=== PATIENT | female | born 1940 | race Caucasian/White ===

== ENCOUNTER 2020-10-19 05:26 | Inpatient (IN) ==
[2020-10-19 06:10] LABS: Basophils % 0.1 % (0.0-0.8); Hematocrit 38.2 VOL% (35.7-47.0); Hemoglobin 13.2 GM/DL (12.0-16.0); Immature Granulocytes % 0.7 %; Immature Granulocytes Absolute 0.07 #; Lymphocytes # 0.8 10*3/uL (1.4-4.0); Mean Corpuscular HGB Conc 34.6 GM/DL (32-36); Mean Corpuscular Volume 88.8 FL (87-102); Mean Platelet Volume 9.7 FL (9.6-12.0); Monocytes % 3.2 % (1.7-12.7); Platelet Count 203 T/CUMM (130-400); Red Cell Distribution Width 12.6 % (9.3-17.3)
[2020-10-19 06:41] LABS: Hypochromasia 1+; Microcytosis 1+; Platelet Estimate Adequate
[2020-10-19 06:43] LABS: Albumin 2.8 G/DL (3.4-5.0); Bilirubin,Total 0.9 MG/DL (0.2-1.0); Calcium 8.4 MG/DL (8.5-10.1); Osmolality,Calculated 269.4 MOS/KG (273-304); Potassium 3.6 MMOL/L (3.5-5.1); Total Protein 7.2 G/DL (6.4-8.3)
[2020-10-19 06:48] LABS: Ferritin 427.7 ng/ml (8-252)
[2020-10-19] MEDS ORDERED: DEXAMETHASONE 4 MG/1 ML VIAL IV STA (06:57)
[2020-10-19] MEDS ORDERED: CHLOPHEDIANOL PO PRN (17:10)
[2020-10-19] MEDS ORDERED: PYRILAMINE PO PRN (17:10)
[2020-10-19] MEDS ORDERED: ACETAMINOPHEN 325 MG TABLET PO PRN (17:10)
[2020-10-19] MEDS ORDERED: GLUCAGON 1 MG VIAL IM PRN (17:10)
[2020-10-19] MEDS ORDERED: ONDANSETRON 4 MG/2 ML VIAL IV PRN (17:10)
[2020-10-19] MEDS ORDERED: LORATADINE 10 MG TABLET PO STA (17:10)
[2020-10-19] MEDS ORDERED: DEXTROSE 50% 25 GM/50 ML VIAL IV PRN (17:10)
[2020-10-19] MEDS ORDERED: AZITHROMYCIN 250 MG TABLET PO STA (17:10)
[2020-10-19] MEDS: FAMOTIDINE 20 MG TABLET PO SCH ×2 (18:00→23:05)
[2020-10-19] MEDS: SODIUM CHLORIDE 0.9% 1,000 ML IV SCH (18:00)
[2020-10-19] MEDS: DOCUSATE SODIUM 100 MG CAPSULE PO SCH ×2 (18:00→23:05)
[2020-10-19] MEDS ORDERED: ENOXAPARIN 40 MG/0.4 ML SYRINGE ONE (18:14)
[2020-10-19] MEDS: ENOXAPARIN 40 MG/0.4 ML SYRINGE SUBCUT SCH (18:25)
[2020-10-19] MEDS: BENZONATATE 100 MG CAPSULE PO SCH (23:05)
[2020-10-19] MEDS: guaiFENesin/CODEINE 5 ML LIQUID PO SCH (23:05)
[2020-10-20 04:19] LABS: Hematocrit 32.2 VOL% (35.7-47.0); Hemoglobin 11.4 GM/DL (12.0-16.0); Immature Granulocytes % 0.8 %; Immature Granulocytes Absolute 0.05 #; Lymphocytes # 0.8 10*3/uL (1.4-4.0); Lymphocytes % 11.6 % (21.3-54.2); Mean Corpuscular HGB Conc 35.4 GM/DL (32-36); Mean Corpuscular Volume 87.3 FL (87-102); Mean Platelet Volume 9.6 FL (9.6-12.0); Monocytes % 5.1 % (1.7-12.7); Neutrophils % 82.5 % (38.7-73.9); Platelet Count 180 T/CUMM (130-400); Red Blood Count 3.69 MC/CUMM (3.8-5.5); Red Cell Distribution Width 12.5 % (9.3-17.3); White Blood Count 6.5 T/CUMM (4-12)
[2020-10-20 04:41] LABS: Hypochromasia 1+; Lymphocytes 8 % (20-55); Microcytosis 1+; Platelet Estimate Adequate; Segmented Neutrophils 89 % (50-85); Total Cells Counted 100
[2020-10-20 04:44] LABS: Bacteria,Urine Occasional /HPF (Few); Bilirubin,Urine Negative (Negative); Blood, Urine Negative (Negative); Glucose,Urine (UA) Negative (Negative); Ketones,Urine Negative (Negative); Mucus,Urine Occasional /LPF (Occasional); Nitrite,Urine Negative (Negative); Protein,Urine Negative; RBC,Urine <1 /HPF (0-4); Squamous Epithelial Cell,Urine Occasional /HPF (0-10); Urine Appearance CLEAR (Clear); Urine Color Yellow (Yellow); Urine Specific Gravity 1.015 (1.001-1.035); Urine Urobilinogen < 2.0 EU/DL (0.2-1.0); WBC,Urine 1 /HPF (0-6)
[2020-10-20 04:46] LABS: Albumin 2.3 G/DL (3.4-5.0); Bilirubin,Total 0.5 MG/DL (0.2-1.0); Osmolality,Calculated 272.1 MOS/KG (273-304); Potassium 3.3 MMOL/L (3.5-5.1); Total Protein 6.9 G/DL (6.4-8.3)
[2020-10-20] MEDS: SODIUM CHLORIDE 0.9% 1,000 ML IV SCH (07:20)
[2020-10-20] MEDS: ZINC GLUCONATE 50 MG TABLET PO SCH (09:00)
[2020-10-20] MEDS: ASCORBIC ACID 500 MG TABLET PO SCH (09:00)
[2020-10-20] MEDS: DOCUSATE SODIUM 100 MG CAPSULE PO SCH ×2 (09:00→22:03)
[2020-10-20] MEDS ORDERED: DEXAMETHASONE INJ 6 MG in SODIUM CHLORIDE 0.9% 50 ML IV SCH (09:00)
[2020-10-20] MEDS: FAMOTIDINE 20 MG TABLET PO SCH ×2 (09:00→22:02)
[2020-10-20] MEDS: BENZONATATE 100 MG CAPSULE PO SCH ×3 (09:20→22:02)
[2020-10-20] MEDS: guaiFENesin/CODEINE 5 ML LIQUID PO SCH ×2 (09:30→22:01)
[2020-10-20] MEDS ORDERED: DEXAMETHASONE 4 MG/1 ML VIAL ONE (09:45)
[2020-10-20] MEDS ORDERED: CHOLECALCIFEROL 1,000 UNIT TABLET ONE (09:52)
[2020-10-20] MEDS ORDERED: REMDESIVIR 200 MG in SODIUM CHLORIDE 0.9% 210 ML IV ONE (10:00)
[2020-10-20] MEDS: DEXAMETHASONE 4 MG/1 ML VIAL IV SCH (10:30)
[2020-10-20] MEDS ORDERED: CHOLECALCIFEROL 1,000 UNIT TABLET PO ONE (10:30)
[2020-10-20] MEDS: ENOXAPARIN 40 MG/0.4 ML SYRINGE SUBCUT SCH ×2 (11:55→17:16)
[2020-10-20] MEDS: VANCOMYCIN INJ 1,250 MG in SODIUM CHLORIDE 0.9% 250 ML IV SCH (16:24)
[2020-10-21] MEDS: VANCOMYCIN INJ 1,250 MG in SODIUM CHLORIDE 0.9% 250 ML IV SCH ×2 (04:26→16:05)
[2020-10-21 05:09] LABS: Basophils % 0.1 % (0.0-0.8); Hemoglobin 11.9 GM/DL (12.0-16.0); Immature Granulocytes % 0.7 %; Immature Granulocytes Absolute 0.06 #; Lymphocytes # 0.9 10*3/uL (1.4-4.0); Lymphocytes % 11.5 % (21.3-54.2); Mean Corpuscular Volume 89.1 FL (87-102); Mean Platelet Volume 9.7 FL (9.6-12.0); Monocytes % 6.2 % (1.7-12.7); Neutrophils % 81.5 % (38.7-73.9); Platelet Count 223 T/CUMM (130-400); Red Blood Count 3.93 MC/CUMM (3.8-5.5); Red Cell Distribution Width 12.5 % (9.3-17.3); White Blood Count 8.1 T/CUMM (4-12)
[2020-10-21 05:38] LABS: Hypochromasia 1+; Microcytosis 1+; Platelet Estimate Adequate
[2020-10-21] MEDS: POTASSIUM CHLORIDE 20 MEQ TABLET PO SCH (09:15)
[2020-10-21] MEDS: BENZONATATE 100 MG CAPSULE PO SCH ×3 (09:15→21:23)
[2020-10-21] MEDS: CHOLECALCIFEROL 5,000 UNIT TABLET PO SCH (09:15)
[2020-10-21] MEDS: guaiFENesin/CODEINE 5 ML LIQUID PO SCH ×2 (09:15→21:23)
[2020-10-21] MEDS: REMDESIVIR 100 MG in SODIUM CHLORIDE 0.9% 100 ML IV SCH (09:15)
[2020-10-21] MEDS: ASCORBIC ACID 500 MG TABLET PO SCH (09:15)
[2020-10-21] MEDS: DEXAMETHASONE 4 MG/1 ML VIAL IV SCH (09:15)
[2020-10-21] MEDS: DOCUSATE SODIUM 100 MG CAPSULE PO SCH ×2 (09:15→21:00)
[2020-10-21] MEDS: FAMOTIDINE 20 MG TABLET PO SCH ×2 (09:15→21:22)
[2020-10-21] MEDS: SODIUM CHLORIDE 0.9% 1,000 ML IV SCH ×2 (10:59)
[2020-10-21] MEDS: LOSARTAN 50 MG TABLET PO SCH (11:50)
[2020-10-21] MEDS ORDERED: POTASSIUM CHLORIDE 20 MEQ TABLET PO SCH (13:57)
[2020-10-21] MEDS: ENOXAPARIN 40 MG/0.4 ML SYRINGE SUBCUT SCH (17:47)
[2020-10-22] MEDS: VANCOMYCIN INJ 1,250 MG in SODIUM CHLORIDE 0.9% 250 ML IV SCH (05:30)
[2020-10-22 06:13] LABS: Basophils % 0.2 % (0.0-0.8); Eosinophils % 0.1 % (0.00-10.9); Hematocrit 34.4 VOL% (35.7-47.0); Hemoglobin 11.7 GM/DL (12.0-16.0); Immature Granulocytes % 1.1 %; Immature Granulocytes Absolute 0.11 #; Lymphocytes # 0.6 10*3/uL (1.4-4.0); Lymphocytes % 6.5 % (21.3-54.2); Mean Corpuscular Volume 90.8 FL (87-102); Mean Platelet Volume 9.8 FL (9.6-12.0); Monocytes % 3.6 % (1.7-12.7); Neutrophils % 88.5 % (38.7-73.9); Platelet Count 199 T/CUMM (130-400); Red Blood Count 3.79 MC/CUMM (3.8-5.5); Red Cell Distribution Width 12.9 % (9.3-17.3); White Blood Count 9.6 T/CUMM (4-12)
[2020-10-22 06:29] LABS: Albumin 2.2 G/DL (3.4-5.0); Bilirubin,Total 1.4 MG/DL (0.2-1.0); Calcium 8.1 MG/DL (8.5-10.1); Osmolality,Calculated 282.4 MOS/KG (273-304); Potassium 3.6 MMOL/L (3.5-5.1); Total Protein 6.9 G/DL (6.4-8.3)
[2020-10-22] MEDS ORDERED: FUROSEMIDE 40 MG/4 ML VIAL IV ONE (07:52)
[2020-10-22] MEDS ORDERED: hydroCHLOROthiazide 25 MG TABLET PO SCH (09:00)
[2020-10-22] MEDS: CHOLECALCIFEROL 5,000 UNIT TABLET PO SCH (09:45)
[2020-10-22] MEDS: ZINC GLUCONATE 50 MG TABLET PO SCH (09:45)
[2020-10-22] MEDS: LOSARTAN 50 MG TABLET PO SCH (09:45)
[2020-10-22] MEDS: BENZONATATE 100 MG CAPSULE PO SCH ×2 (09:45→16:23)
[2020-10-22] MEDS: ASCORBIC ACID 500 MG TABLET PO SCH (09:45)
[2020-10-22] MEDS: FAMOTIDINE 20 MG TABLET PO SCH ×2 (09:45→21:18)
[2020-10-22] MEDS: POTASSIUM CHLORIDE 20 MEQ TABLET PO SCH (09:45)
[2020-10-22] MEDS: DEXAMETHASONE 4 MG/1 ML VIAL IV SCH (09:47)
[2020-10-22] MEDS: DOCUSATE SODIUM 100 MG CAPSULE PO SCH ×2 (10:53→21:18)
[2020-10-22] MEDS: BUDESONIDE/FORMOTEROL 160-4.5 INHALER 6 GM INH SCH ×2 (11:28→21:18)
[2020-10-22] MEDS: guaiFENesin/CODEINE 5 ML LIQUID PO SCH ×2 (11:28→21:18)
[2020-10-22] MEDS: REMDESIVIR 100 MG in SODIUM CHLORIDE 0.9% 100 ML IV SCH (11:29)
[2020-10-22] MEDS: SODIUM CHLORIDE 0.9% 1,000 ML IV SCH ×2 (16:06→16:51)
[2020-10-22] MEDS: LORATADINE 10 MG TABLET PO SCH (16:51)
[2020-10-22 17:47] LABS: Bacteria,Urine Occasional /HPF (Few); Bilirubin,Urine Negative (Negative); Blood, Urine Small mg/dL (Negative); Glucose,Urine (UA) Negative (Negative); Ketones,Urine Negative (Negative); Mucus,Urine Occasional /LPF (Occasional); Nitrite,Urine Negative (Negative); Protein,Urine 30 MG/DL; RBC,Urine 7 /HPF (0-4); Squamous Epithelial Cell,Urine Occasional /HPF (0-10); Urine Appearance CLEAR (Clear); Urine Color Yellow (Yellow); Urine Specific Gravity 1.014 (1.001-1.035); WBC,Urine 1 /HPF (0-6)
[2020-10-22] MEDS: ENOXAPARIN 40 MG/0.4 ML SYRINGE SUBCUT SCH (17:50)
[2020-10-22] MEDS: METOPROLOL TARTRATE 25 MG TABLET PO SCH (21:18)
[2020-10-23] MEDS: SODIUM CHLORIDE 0.9% 1,000 ML IV SCH ×2 (06:05→08:50)
[2020-10-23] MEDS ORDERED: FUROSEMIDE 40 MG/4 ML VIAL IV ONE ×2 (08:06→08:13)
[2020-10-23 09:22] LABS: ABG Base Excess 2.3 MMOL/L (-2.5-2.5); ABG PCO2 38.1 MM HG (35-48); ABG PH 7.446 (7.35-7.45); ABG PO2 43.2 MM HG (80-95); ABG TCO2 23.1 MMOL/L (23-27)
[2020-10-23] MEDS ORDERED: hydrALAZINE 20 MG/1 ML VIAL IV PRN (09:23)
[2020-10-23 10:24] LABS: Basophils % 0.1 % (0.0-0.8); Eosinophils % 0.1 % (0.00-10.9); Hematocrit 36.7 VOL% (35.7-47.0); Hemoglobin 12.2 GM/DL (12.0-16.0); Immature Granulocytes % 1.2 %; Immature Granulocytes Absolute 0.15 #; Lymphocytes # 0.4 10*3/uL (1.4-4.0); Lymphocytes % 3.5 % (21.3-54.2); Mean Corpuscular HGB Conc 33.2 GM/DL (32-36); Mean Corpuscular Volume 90.6 FL (87-102); Mean Platelet Volume 9.7 FL (9.6-12.0); Monocytes % 3.1 % (1.7-12.7); NRBC # 0.02 10*3/uL; Platelet Count 173 T/CUMM (130-400); Red Blood Count 4.05 MC/CUMM (3.8-5.5); Red Cell Distribution Width 13.1 % (9.3-17.3); White Blood Count 12.5 T/CUMM (4-12)
[2020-10-23 10:43] LABS: Albumin 2.2 G/DL (3.4-5.0); Calcium 8.1 MG/DL (8.5-10.1); Osmolality,Calculated 279.8 MOS/KG (273-304); Potassium 3.3 MMOL/L (3.5-5.1); Total Protein 7.3 G/DL (6.4-8.3)
[2020-10-23 12:29] LABS: Eosinophils 1 % (0-10); Hypochromasia 2+; Lymphocytes 3 % (20-55); Microcytosis 1+; Platelet Estimate Adequate; Polychromasia Slight; Segmented Neutrophils 91 % (50-85); Total Cells Counted 100
[2020-10-23] MEDS: POTASSIUM CHLORIDE 20 MEQ TABLET PO SCH (12:32)
[2020-10-23] MEDS: LORATADINE 10 MG TABLET PO SCH (12:32)
[2020-10-23] MEDS: DOCUSATE SODIUM 100 MG CAPSULE PO SCH ×2 (12:32→20:08)
[2020-10-23] MEDS: BUDESONIDE/FORMOTEROL 160-4.5 INHALER 6 GM INH SCH ×2 (12:33→21:08)
[2020-10-23] MEDS: FAMOTIDINE 20 MG TABLET PO SCH (12:33)
[2020-10-23] MEDS: guaiFENesin/CODEINE 5 ML LIQUID PO SCH ×2 (12:33→20:08)
[2020-10-23] MEDS: CHOLECALCIFEROL 5,000 UNIT TABLET PO SCH (12:33)
[2020-10-23] MEDS: ASCORBIC ACID 500 MG TABLET PO SCH (12:33)
[2020-10-23] MEDS: LOSARTAN 50 MG TABLET PO SCH (13:10)
[2020-10-23] MEDS: DEXAMETHASONE 4 MG/1 ML VIAL IV SCH ×2 (13:10→18:33)
[2020-10-23] MEDS: ENOXAPARIN 60 MG/0.6 ML SYRINGE SUBCUT SCH ×2 (13:10→20:43)
[2020-10-23] MEDS: METOPROLOL TARTRATE 25 MG TABLET PO SCH ×2 (13:10→20:09)
[2020-10-23] MEDS: REMDESIVIR 100 MG in SODIUM CHLORIDE 0.9% 100 ML IV SCH (14:07)
[2020-10-23] MEDS: INSULIN LISPRO 100 UNIT/ML SUBCUT SCH ×2 (17:52→20:08)
[2020-10-23] MEDS: FAMOTIDINE 20 MG/2 ML VIAL IV SCH (20:44)
[2020-10-23] MEDS ORDERED: VECURONIUM 10 MG VIAL IV ONE (20:55)
[2020-10-23] MEDS ORDERED: ETOMIDATE 20 MG/10 ML VIAL IV ONE (20:55)
[2020-10-23 21:06] LABS: ABG Base Excess 3.6 MMOL/L (-2.5-2.5); ABG HCO3 29.9 MMOL/L (20-26); ABG Oxygen Saturation 80.8 % (95-100); ABG PH 7.369 (7.35-7.45); ABG PO2 52.8 MM HG (80-95); ABG TCO2 31.5 MMOL/L (23-27)
[2020-10-24] MEDS: DEXAMETHASONE 4 MG/1 ML VIAL IV SCH ×4 (01:00→18:03)
[2020-10-24 04:30] LABS: Hematocrit 32.6 VOL% (35.7-47.0); Hemoglobin 10.8 GM/DL (12.0-16.0); Immature Granulocytes % 0.8 %; Immature Granulocytes Absolute 0.08 #; Lymphocytes # 0.4 10*3/uL (1.4-4.0); Lymphocytes % 3.9 % (21.3-54.2); Mean Corpuscular HGB Conc 33.1 GM/DL (32-36); Mean Corpuscular Volume 92.1 FL (87-102); Mean Platelet Volume 9.9 FL (9.6-12.0); Monocytes % 3.6 % (1.7-12.7); Neutrophils % 91.7 % (38.7-73.9); Platelet Count 131 T/CUMM (130-400); Red Blood Count 3.54 MC/CUMM (3.8-5.5); White Blood Count 9.6 T/CUMM (4-12)
[2020-10-24 04:49] LABS: Calcium 7.8 MG/DL (8.5-10.1); Osmolality,Calculated 296.1 MOS/KG (273-304); Potassium 3.6 MMOL/L (3.5-5.1)
[2020-10-24 05:06] LABS: Ferritin 377.9 ng/ml (8-252)
[2020-10-24] MEDS: SODIUM CHLORIDE 0.9% 1,000 ML IV SCH (05:28)
[2020-10-24 07:02] LABS: Hypochromasia 1+; Lymphocytes 3 % (20-55); Platelet Estimate Decreased; Segmented Neutrophils 94 % (50-85); Total Cells Counted 100
[2020-10-24] MEDS: METOPROLOL TARTRATE 25 MG TABLET PO SCH (08:38)
[2020-10-24] MEDS: ASCORBIC ACID 500 MG TABLET PO SCH (08:38)
[2020-10-24] MEDS: ZINC GLUCONATE 50 MG TABLET PO SCH (08:38)
[2020-10-24] MEDS: LOSARTAN 50 MG TABLET PO SCH (08:38)
[2020-10-24] MEDS: FAMOTIDINE 20 MG/2 ML VIAL IV SCH ×2 (08:39→21:35)
[2020-10-24] MEDS: POTASSIUM CHLORIDE 20 MEQ TABLET PO SCH (08:39)
[2020-10-24] MEDS: DOCUSATE SODIUM 100 MG CAPSULE PO SCH ×2 (08:39→23:11)
[2020-10-24] MEDS: LORATADINE 10 MG TABLET PO SCH (08:39)
[2020-10-24] MEDS: ENOXAPARIN 60 MG/0.6 ML SYRINGE SUBCUT SCH (08:40)
[2020-10-24] MEDS: CHOLECALCIFEROL 5,000 UNIT TABLET PO SCH (08:46)
[2020-10-24] MEDS: INSULIN LISPRO 100 UNIT/ML SUBCUT SCH ×4 (09:06→21:30)
[2020-10-24] MEDS: guaiFENesin/CODEINE 5 ML LIQUID PO SCH ×2 (09:28→21:30)
[2020-10-24] MEDS: REMDESIVIR 100 MG in SODIUM CHLORIDE 0.9% 100 ML IV SCH (10:47)
[2020-10-24] MEDS: BUDESONIDE/FORMOTEROL 160-4.5 INHALER 6 GM INH SCH ×2 (10:47→23:13)
[2020-10-24 11:50] LABS: ABG Base Excess 2.6 MMOL/L (-2.5-2.5); ABG HCO3 26.5 MMOL/L (20-26); ABG Oxygen Saturation 86.7 % (95-100); ABG PCO2 47.8 MM HG (35-48); ABG PH 7.381 (7.35-7.45); ABG PO2 56.9 MM HG (80-95); ABG TCO2 25.5 MMOL/L (23-27); Allen Test Positive; Pt O2 Delivery Device BIPAP
[2020-10-24] MEDS ORDERED: DEXMEDETOMIDINE 200 MCG in SODIUM CHLORIDE 0.9% 48 ML IV PRN (12:11)
[2020-10-24] MEDS: LACTATED RINGERS 1,000 ML IV SCH ×2 (12:36→23:14)
[2020-10-24] MEDS ORDERED: ETOMIDATE 20 MG/10 ML VIAL IV ONE ×2 (14:10→14:14)
[2020-10-24] MEDS ORDERED: SUCCINYLCHOLINE 200 MG/10 ML VIAL ONE (14:11)
[2020-10-24] MEDS ORDERED: SUCCINYLCHOLINE 200 MG/10 ML VIAL IV ONE (14:15)
[2020-10-24] MEDS ORDERED: MIDAZOLAM 2 MG/2 ML VIAL ONE (14:34)
[2020-10-24] MEDS ORDERED: MIDAZOLAM 2 MG/2 ML VIAL IV ONE (14:36)
[2020-10-24 14:53] LABS: ABG Base Excess -0.2 MMOL/L (-2.5-2.5); ABG HCO3 24.1 MMOL/L (20-26); ABG Oxygen Saturation 90.1 % (95-100); ABG PCO2 60.9 MM HG (35-48); ABG PH 7.271 (7.35-7.45); ABG PO2 71.9 MM HG (80-95); ABG TCO2 25.6 MMOL/L (23-27); Allen Test Positive; Pt O2 Delivery Device Ventilator
[2020-10-24] MEDS ORDERED: SODIUM CHLORIDE 0.9% 1,000 ML IV ONE (15:07)
[2020-10-24] MEDS: MIDAZOLAM 100 MG in SODIUM CHLORIDE 0.9% 80 ML IV PRN (15:17)
[2020-10-24 16:07] LABS: Allen Test Positive; Pt O2 Delivery Device Ventilator
[2020-10-24 16:08] LABS: ABG Base Excess -2.4 MMOL/L (-2.5-2.5); ABG HCO3 26.1 MMOL/L (20-26); ABG Oxygen Saturation 87.6 % (95-100); ABG PCO2 64.3 MM HG (35-48); ABG PH 7.226 (7.35-7.45); ABG PO2 67.3 MM HG (80-95); ABG TCO2 28.1 MMOL/L (23-27)
[2020-10-24 18:27] LABS: ABG Base Excess -0.8 MMOL/L (-2.5-2.5); ABG HCO3 23.6 MMOL/L (20-26); ABG Oxygen Saturation 91.6 % (95-100); ABG PCO2 59.6 MM HG (35-48); ABG PH 7.268 (7.35-7.45); ABG PO2 74.2 MM HG (80-95); Allen Test Positive; Pt O2 Delivery Device Ventilator
[2020-10-24] MEDS ORDERED: METOPROLOL TARTRATE 25 MG TABLET PO SCH (21:00)
[2020-10-24] MEDS: ENOXAPARIN 100 MG/ML SYRINGE SUBCUT SCH (21:30)
[2020-10-25] MEDS: DEXAMETHASONE 4 MG/1 ML VIAL IV SCH ×4 (01:00→18:11)
[2020-10-25] MEDS: LACTATED RINGERS 1,000 ML IV SCH ×4 (01:11→20:53)
[2020-10-25] MEDS: MIDAZOLAM 100 MG in SODIUM CHLORIDE 0.9% 80 ML IV PRN (02:00)
[2020-10-25] MEDS ORDERED: SODIUM CHLORIDE 0.9% 500 ML IV ONE (03:30)
[2020-10-25 05:13] LABS: Allen Test Positive; Pt O2 Delivery Device Ventilator
[2020-10-25 05:16] LABS: ABG Base Excess 0.8 MMOL/L (-2.5-2.5); ABG HCO3 27.4 MMOL/L (20-26); ABG Oxygen Saturation 95.3 % (95-100); ABG PH 7.331 (7.35-7.45); ABG PO2 87.6 MM HG (80-95)
[2020-10-25 05:36] LABS: Hematocrit 30.8 VOL% (35.7-47.0); Hemoglobin 10.2 GM/DL (12.0-16.0); Immature Granulocytes % 0.6 %; Immature Granulocytes Absolute 0.04 #; Lymphocytes # 0.3 10*3/uL (1.4-4.0); Lymphocytes % 3.9 % (21.3-54.2); Mean Corpuscular HGB Conc 33.1 GM/DL (32-36); Mean Corpuscular Volume 93.3 FL (87-102); Monocytes % 3.9 % (1.7-12.7); Neutrophils % 91.6 % (38.7-73.9); Platelet Count 138 T/CUMM (130-400); Red Cell Distribution Width 13.3 % (9.3-17.3); White Blood Count 6.4 T/CUMM (4-12)
[2020-10-25 05:57] LABS: Albumin 1.7 G/DL (3.4-5.0); Bilirubin,Total 0.8 MG/DL (0.2-1.0); Calcium 7.6 MG/DL (8.5-10.1); Osmolality,Calculated 309.7 MOS/KG (273-304); Potassium 3.9 MMOL/L (3.5-5.1); Total Protein 6.4 G/DL (6.4-8.3)
[2020-10-25 06:00] LABS: Lymphocytes 5 % (20-55); Segmented Neutrophils 92 % (50-85); Total Cells Counted 100
[2020-10-25 06:01] LABS: Hypochromasia 1+; Microcytosis 1+; Platelet Estimate Adequate
[2020-10-25] MEDS ORDERED: NOREPINEPHRINE 8 MG in SODIUM CHLORIDE 0.9% 242 ML IV PRN (06:46)
[2020-10-25] MEDS: LORATADINE 10 MG TABLET PO SCH (08:34)
[2020-10-25] MEDS: DOCUSATE SODIUM 100 MG CAPSULE PO SCH ×2 (08:34→20:51)
[2020-10-25] MEDS: ASCORBIC ACID 500 MG TABLET PO SCH (08:34)
[2020-10-25] MEDS: POTASSIUM CHLORIDE 20 MEQ TABLET PO SCH (08:34)
[2020-10-25] MEDS: CHOLECALCIFEROL 5,000 UNIT TABLET PO SCH (08:34)
[2020-10-25] MEDS: BUDESONIDE/FORMOTEROL 160-4.5 INHALER 6 GM INH SCH ×2 (08:35→20:51)
[2020-10-25] MEDS: guaiFENesin/CODEINE 5 ML LIQUID PO SCH ×2 (08:35→20:51)
[2020-10-25] MEDS: FAMOTIDINE 20 MG/2 ML VIAL IV SCH ×2 (08:35→20:50)
[2020-10-25] MEDS: ENOXAPARIN 100 MG/ML SYRINGE SUBCUT SCH ×2 (08:51→20:50)
[2020-10-25] MEDS: INSULIN LISPRO 100 UNIT/ML SUBCUT SCH ×3 (11:13→18:12)
[2020-10-25] MEDS: ALBUMIN 25% 25 GM in PREMIX 1 EACH IV SCH ×2 (13:24→18:12)
[2020-10-25] MEDS ORDERED: SODIUM CHLORIDE 0.9% 1,000 ML IV PRN (13:36)
[2020-10-26] MEDS: INSULIN LISPRO 100 UNIT/ML SUBCUT SCH ×4 (00:55→18:11)
[2020-10-26] MEDS: MORPHINE 4 MG/1 ML VIAL IV PRN ×2 (01:20→13:25)
[2020-10-26] MEDS: ALBUMIN 25% 25 GM in PREMIX 1 EACH IV SCH ×3 (02:30→18:12)
[2020-10-26 04:05] LABS: Hematocrit 28.1 VOL% (35.7-47.0); Hemoglobin 9.1 GM/DL (12.0-16.0); Immature Granulocytes Absolute 0.07 #; Lymphocytes # 0.3 10*3/uL (1.4-4.0); Lymphocytes % 4.2 % (21.3-54.2); Mean Corpuscular HGB Conc 32.4 GM/DL (32-36); Mean Corpuscular Volume 94.6 FL (87-102); Mean Platelet Volume 10.5 FL (9.6-12.0); Monocytes % 5.4 % (1.7-12.7); Neutrophils % 89.4 % (38.7-73.9); Platelet Count 120 T/CUMM (130-400); Red Blood Count 2.97 MC/CUMM (3.8-5.5); Red Cell Distribution Width 13.4 % (9.3-17.3); White Blood Count 7.1 T/CUMM (4-12)
[2020-10-26 04:18] LABS: Allen Test Positive; Pt O2 Delivery Device Ventilator
[2020-10-26 04:21] LABS: ABG Base Excess 0.7 MMOL/L (-2.5-2.5); ABG Oxygen Saturation 98.2 % (95-100); ABG PCO2 57.1 MM HG (35-48); ABG PH 7.309 (7.35-7.45); ABG PO2 134.8 MM HG (80-95); ABG TCO2 29.8 MMOL/L (23-27)
[2020-10-26 04:25] LABS: Band Neutrophils 1 % (0-10); Hypochromasia 1+; Lymphocytes 2 % (20-55); Microcytosis 1+; Segmented Neutrophils 93 % (50-85); Total Cells Counted 100
[2020-10-26 04:40] LABS: Bilirubin,Total 0.7 MG/DL (0.2-1.0); Calcium 8.1 MG/DL (8.5-10.1); Osmolality,Calculated 312.6 MOS/KG (273-304); Potassium 4.3 MMOL/L (3.5-5.1); Total Protein 6.8 G/DL (6.4-8.3)
[2020-10-26] MEDS: LACTATED RINGERS 1,000 ML IV SCH ×3 (06:36→23:21)
[2020-10-26] MEDS: LORATADINE 10 MG TABLET PO SCH (08:16)
[2020-10-26] MEDS: CHOLECALCIFEROL 5,000 UNIT TABLET PO SCH (08:16)
[2020-10-26] MEDS: DOCUSATE SODIUM 100 MG CAPSULE PO SCH ×2 (08:16→21:00)
[2020-10-26] MEDS: POTASSIUM CHLORIDE 20 MEQ TABLET PO SCH (08:16)
[2020-10-26] MEDS: ASCORBIC ACID 500 MG TABLET PO SCH (08:16)
[2020-10-26] MEDS: FAMOTIDINE 20 MG/2 ML VIAL IV SCH ×2 (08:17→21:00)
[2020-10-26] MEDS: ENOXAPARIN 100 MG/ML SYRINGE SUBCUT SCH ×2 (08:17→21:00)
[2020-10-26] MEDS: guaiFENesin/CODEINE 5 ML LIQUID PO SCH ×2 (08:17→21:00)
[2020-10-26] MEDS: DEXAMETHASONE 4 MG/1 ML VIAL IV SCH (08:17)
[2020-10-26] MEDS: BUDESONIDE/FORMOTEROL 160-4.5 INHALER 6 GM INH SCH ×2 (08:21→21:00)
[2020-10-27] MEDS: INSULIN LISPRO 100 UNIT/ML SUBCUT SCH ×4 (00:32→17:53)
[2020-10-27] MEDS: ALBUMIN 25% 25 GM in PREMIX 1 EACH IV SCH (01:30)
[2020-10-27 03:36] LABS: ABG Base Excess 2.6 MMOL/L (-2.5-2.5); ABG HCO3 26.6 MMOL/L (20-26); ABG Oxygen Saturation 92.4 % (95-100); ABG PCO2 53.5 MM HG (35-48); ABG PH 7.342 (7.35-7.45); ABG PO2 68.9 MM HG (80-95); ABG TCO2 27.1 MMOL/L (23-27); Allen Test Positive; Pt O2 Delivery Device Ventilator
[2020-10-27 05:09] LABS: Hematocrit 26.9 VOL% (35.7-47.0); Hemoglobin 8.7 GM/DL (12.0-16.0); Immature Granulocytes % 1.1 %; Immature Granulocytes Absolute 0.09 #; Lymphocytes # 0.3 10*3/uL (1.4-4.0); Lymphocytes % 3.4 % (21.3-54.2); Mean Corpuscular HGB Conc 32.3 GM/DL (32-36); Mean Corpuscular Volume 95.7 FL (87-102); Mean Platelet Volume 10.8 FL (9.6-12.0); Monocytes % 6.2 % (1.7-12.7); NRBC # 0.02 10*3/uL; Neutrophils % 89.3 % (38.7-73.9); Platelet Count 103 T/CUMM (130-400); Red Blood Count 2.81 MC/CUMM (3.8-5.5); Red Cell Distribution Width 13.5 % (9.3-17.3); White Blood Count 8.1 T/CUMM (4-12)
[2020-10-27 05:31] LABS: Hypochromasia 1+; Lymphocytes 4 % (20-55); Microcytosis 1+; Nucleated Red Blood Cells 1 (0-5); Platelet Estimate Decreased; Segmented Neutrophils 93 % (50-85); Total Cells Counted 100
[2020-10-27 05:37] LABS: Albumin 3.3 G/DL (3.4-5.0); Bilirubin,Total 0.6 MG/DL (0.2-1.0); Calcium 8.5 MG/DL (8.5-10.1); Osmolality,Calculated 310.6 MOS/KG (273-304); Potassium 4.5 MMOL/L (3.5-5.1); Total Protein 6.4 G/DL (6.4-8.3)
[2020-10-27] MEDS: FAMOTIDINE 20 MG/2 ML VIAL IV SCH ×2 (08:04→21:33)
[2020-10-27] MEDS: ENOXAPARIN 100 MG/ML SYRINGE SUBCUT SCH (08:04)
[2020-10-27] MEDS: LORATADINE 10 MG TABLET PO SCH (08:05)
[2020-10-27] MEDS: DOCUSATE SODIUM 100 MG CAPSULE PO SCH (08:05)
[2020-10-27] MEDS: POTASSIUM CHLORIDE 20 MEQ TABLET PO SCH (08:05)
[2020-10-27] MEDS: CHOLECALCIFEROL 5,000 UNIT TABLET PO SCH (08:05)
[2020-10-27] MEDS: ASCORBIC ACID 500 MG TABLET PO SCH (08:05)
[2020-10-27] MEDS: DEXAMETHASONE 4 MG/1 ML VIAL IV SCH (08:06)
[2020-10-27] MEDS: LACTATED RINGERS 1,000 ML IV SCH ×2 (08:37→13:52)
[2020-10-27] MEDS: BUDESONIDE/FORMOTEROL 160-4.5 INHALER 6 GM INH SCH ×2 (08:38→21:34)
[2020-10-27] MEDS: ROCURONIUM 500 MG in SODIUM CHLORIDE 0.9% 500 ML IV PRN ×2 (12:40→23:59)
[2020-10-27] MEDS: DOCUSATE SODIUM 100 MG/10 ML UDCUP PO SCH (21:33)
[2020-10-27] MEDS: ENOXAPARIN 60 MG/0.6 ML SYRINGE SUBCUT SCH (21:33)
[2020-10-27] MEDS: MIDAZOLAM 100 MG in SODIUM CHLORIDE 0.9% 80 ML IV PRN (23:00)
[2020-10-28] MEDS: INSULIN LISPRO 100 UNIT/ML SUBCUT SCH ×4 (00:52→18:01)
[2020-10-28 04:27] LABS: ABG Base Excess 1.3 MMOL/L (-2.5-2.5); ABG HCO3 28.1 MMOL/L (20-26); ABG Oxygen Saturation 98.2 % (95-100); ABG PCO2 57.1 MM HG (35-48); ABG PO2 140.6 MM HG (80-95); ABG TCO2 29.9 MMOL/L (23-27); Allen Test Positive; Pt O2 Delivery Device Ventilator
[2020-10-28 04:27] LABS: Eosinophils % 0.4 % (0.00-10.9); Hematocrit 27.3 VOL% (35.7-47.0); Hemoglobin 8.5 GM/DL (12.0-16.0); Immature Granulocytes Absolute 0.15 #; Lymphocytes # 0.4 10*3/uL (1.4-4.0); Lymphocytes % 4.7 % (21.3-54.2); Mean Corpuscular HGB Conc 31.1 GM/DL (32-36); Mean Corpuscular Volume 97.2 FL (87-102); Mean Platelet Volume 10.8 FL (9.6-12.0); Monocytes % 7.1 % (1.7-12.7); NRBC # 0.03 10*3/uL; Neutrophils % 85.8 % (38.7-73.9); Platelet Count 102 T/CUMM (130-400); Red Blood Count 2.81 MC/CUMM (3.8-5.5); Red Cell Distribution Width 13.6 % (9.3-17.3); White Blood Count 7.5 T/CUMM (4-12)
[2020-10-28 04:48] LABS: Hypochromasia 2+; Lymphocytes 8 % (20-55); Microcytosis 1+; Platelet Estimate Decreased; Segmented Neutrophils 88 % (50-85); Total Cells Counted 100
[2020-10-28 04:51] LABS: Calcium 8.4 MG/DL (8.5-10.1); Osmolality,Calculated 313.4 MOS/KG (273-304); Potassium 4.8 MMOL/L (3.5-5.1)
[2020-10-28] MEDS: ASCORBIC ACID 500 MG TABLET PO SCH (08:25)
[2020-10-28] MEDS: DOCUSATE SODIUM 100 MG/10 ML UDCUP PO SCH ×2 (08:28→20:36)
[2020-10-28] MEDS: LORATADINE 10 MG TABLET PO SCH (08:28)
[2020-10-28] MEDS: DEXAMETHASONE 4 MG/1 ML VIAL IV SCH (08:28)
[2020-10-28] MEDS: FAMOTIDINE 20 MG/2 ML VIAL IV SCH ×2 (08:29→20:36)
[2020-10-28] MEDS: ENOXAPARIN 60 MG/0.6 ML SYRINGE SUBCUT SCH ×2 (08:29→20:36)
[2020-10-28] MEDS: POTASSIUM CHLORIDE 20 MEQ TABLET PO SCH (08:29)
[2020-10-28] MEDS: CHOLECALCIFEROL 5,000 UNIT TABLET PO SCH (08:30)
[2020-10-28] MEDS: BUDESONIDE/FORMOTEROL 160-4.5 INHALER 6 GM INH SCH ×2 (08:30→20:36)
[2020-10-28] MEDS: cefTRIAXone 1,000 MG in SYRINGE 1 EACH IV SCH (11:23)
[2020-10-28] MEDS: ROCURONIUM 500 MG in SODIUM CHLORIDE 0.9% 500 ML IV PRN (12:06)
[2020-10-28] MEDS: MIDAZOLAM 100 MG in SODIUM CHLORIDE 0.9% 80 ML IV PRN (19:30)
[2020-10-29] MEDS: ROCURONIUM 500 MG in SODIUM CHLORIDE 0.9% 500 ML IV PRN ×2 (00:30→18:27)
[2020-10-29] MEDS: INSULIN LISPRO 100 UNIT/ML SUBCUT SCH ×4 (00:43→17:54)
[2020-10-29 04:50] LABS: Basophils % 0.2 % (0.0-0.8); Eosinophils # 0.1 10*3/uL (0.0-0.87); Eosinophils % 1.1 % (0.00-10.9); Immature Granulocytes % 2.8 %; Immature Granulocytes Absolute 0.18 #; Lymphocytes # 0.3 10*3/uL (1.4-4.0); Lymphocytes % 5.3 % (21.3-54.2); Mean Corpuscular HGB Conc 32.1 GM/DL (32-36); Mean Corpuscular Volume 95.6 FL (87-102); Mean Platelet Volume 11.5 FL (9.6-12.0); Monocytes % 7.6 % (1.7-12.7); Platelet Count 101 T/CUMM (130-400); Red Blood Count 2.93 MC/CUMM (3.8-5.5); Red Cell Distribution Width 13.5 % (9.3-17.3); White Blood Count 6.5 T/CUMM (4-12)
[2020-10-29 04:56] LABS: ABG HCO3 26.2 MMOL/L (20-26); ABG Oxygen Saturation 97.1 % (95-100); ABG PCO2 57.4 MM HG (35-48); ABG PH 7.315 (7.35-7.45); ABG PO2 96.7 MM HG (80-95); Allen Test Positive; Pt O2 Delivery Device Ventilator
[2020-10-29 05:13] LABS: Calcium 8.4 MG/DL (8.5-10.1); Osmolality,Calculated 307.6 MOS/KG (273-304); Potassium 4.8 MMOL/L (3.5-5.1)
[2020-10-29] MEDS: cefTRIAXone 1,000 MG in SYRINGE 1 EACH IV SCH (09:52)
[2020-10-29] MEDS: DOCUSATE SODIUM 100 MG/10 ML UDCUP PO SCH ×2 (09:52→20:59)
[2020-10-29] MEDS: POTASSIUM CHLORIDE 20 MEQ TABLET PO SCH (09:52)
[2020-10-29] MEDS: ASCORBIC ACID 500 MG TABLET PO SCH (09:52)
[2020-10-29] MEDS: CHOLECALCIFEROL 5,000 UNIT TABLET PO SCH (09:52)
[2020-10-29] MEDS: LORATADINE 10 MG TABLET PO SCH (09:52)
[2020-10-29] MEDS: FAMOTIDINE 20 MG/2 ML VIAL IV SCH ×2 (09:53→20:59)
[2020-10-29] MEDS: DEXAMETHASONE 4 MG/1 ML VIAL IV SCH (09:53)
[2020-10-29] MEDS: ENOXAPARIN 60 MG/0.6 ML SYRINGE SUBCUT SCH ×2 (09:54→20:59)
[2020-10-29] MEDS: BUDESONIDE/FORMOTEROL 160-4.5 INHALER 6 GM INH SCH ×2 (13:26→21:00)
[2020-10-29] MEDS: MIDAZOLAM 100 MG in SODIUM CHLORIDE 0.9% 80 ML IV PRN (17:33)
[2020-10-29] MEDS: ALBUTEROL INHALER 18 GM INH SCH (19:24)
[2020-10-30] MEDS: INSULIN LISPRO 100 UNIT/ML SUBCUT SCH ×4 (00:48→18:37)
[2020-10-30] MEDS: ALBUTEROL INHALER 18 GM INH SCH ×4 (00:49→19:42)
[2020-10-30 02:55] LABS: ABG HCO3 29.1 MMOL/L (20-26); ABG Oxygen Saturation 96.6 % (95-100); ABG PCO2 60.6 MM HG (35-48); ABG PO2 96.7 MM HG (80-95)
[2020-10-30 04:55] LABS: Basophils % 0.1 % (0.0-0.8); Eosinophils # 0.2 10*3/uL (0.0-0.87); Eosinophils % 2.2 % (0.00-10.9); Hematocrit 28.4 VOL% (35.7-47.0); Hemoglobin 8.8 GM/DL (12.0-16.0); Immature Granulocytes % 2.2 %; Immature Granulocytes Absolute 0.17 #; Lymphocytes # 0.4 10*3/uL (1.4-4.0); Lymphocytes % 5.1 % (21.3-54.2); Mean Corpuscular Volume 97.3 FL (87-102); Mean Platelet Volume 11.5 FL (9.6-12.0); Monocytes % 7.3 % (1.7-12.7); Neutrophils % 83.1 % (38.7-73.9); Red Blood Count 2.92 MC/CUMM (3.8-5.5); Red Cell Distribution Width 13.4 % (9.3-17.3); White Blood Count 7.8 T/CUMM (4-12)
[2020-10-30 04:58] LABS: Platelet Count 95 T/CUMM (130-400)
[2020-10-30 05:06] LABS: Calcium 8.5 MG/DL (8.5-10.1); Osmolality,Calculated 312.3 MOS/KG (273-304); Potassium 5.2 MMOL/L (3.5-5.1)
[2020-10-30 05:31] LABS: Hypochromasia 1+; Microcytosis 1+; Platelet Estimate Decreased
[2020-10-30] MEDS: ENOXAPARIN 60 MG/0.6 ML SYRINGE SUBCUT SCH (08:00)
[2020-10-30] MEDS: FAMOTIDINE 20 MG/2 ML VIAL IV SCH ×2 (08:00→20:54)
[2020-10-30] MEDS: DOCUSATE SODIUM 100 MG/10 ML UDCUP PO SCH ×2 (08:00→20:54)
[2020-10-30] MEDS: CHOLECALCIFEROL 5,000 UNIT TABLET PO SCH (08:00)
[2020-10-30] MEDS: LORATADINE 10 MG TABLET PO SCH (08:00)
[2020-10-30] MEDS: ASCORBIC ACID 500 MG TABLET PO SCH (08:00)
[2020-10-30] MEDS: POTASSIUM CHLORIDE 20 MEQ TABLET PO SCH (08:00)
[2020-10-30] MEDS: DEXAMETHASONE 4 MG/1 ML VIAL IV SCH (08:00)
[2020-10-30] MEDS: BUDESONIDE/FORMOTEROL 160-4.5 INHALER 6 GM INH SCH ×2 (08:00→20:54)
[2020-10-30] MEDS: cefTRIAXone 1,000 MG in SYRINGE 1 EACH IV SCH (09:30)
[2020-10-30] MEDS: FONDAPARINUX 2.5 MG/0.5 ML SYRINGE SUBCUT SCH (13:10)
[2020-10-30] MEDS: SODIUM CHLORIDE 0.45% 1,000 ML IV SCH (13:12)
[2020-10-30] MEDS: MIDAZOLAM 100 MG in SODIUM CHLORIDE 0.9% 80 ML IV PRN (15:05)
[2020-10-31] MEDS: INSULIN LISPRO 100 UNIT/ML SUBCUT SCH ×4 (00:44→18:15)
[2020-10-31] MEDS: SODIUM CHLORIDE 0.45% 1,000 ML IV SCH ×2 (00:44→11:12)
[2020-10-31] MEDS: ALBUTEROL INHALER 18 GM INH SCH ×4 (00:45→18:15)
[2020-10-31 04:23] LABS: ABG Base Excess 2.3 MMOL/L (-2.5-2.5); ABG HCO3 26.5 MMOL/L (20-26); ABG PCO2 57.2 MM HG (35-48); ABG PH 7.321 (7.35-7.45)
[2020-10-31 05:30] LABS: Basophils % 0.2 % (0.0-0.8); Eosinophils # 0.2 10*3/uL (0.0-0.87); Eosinophils % 1.6 % (0.00-10.9); Hematocrit 32.8 VOL% (35.7-47.0); Hemoglobin 10.4 GM/DL (12.0-16.0); Immature Granulocytes % 5.4 %; Immature Granulocytes Absolute 0.77 #; Lymphocytes # 0.7 10*3/uL (1.4-4.0); Mean Corpuscular HGB Conc 31.7 GM/DL (32-36); Mean Corpuscular Volume 95.9 FL (87-102); Mean Platelet Volume 11.3 FL (9.6-12.0); Monocytes % 6.7 % (1.7-12.7); NRBC # 0.02 10*3/uL; Neutrophils % 81.1 % (38.7-73.9); Red Blood Count 3.42 MC/CUMM (3.8-5.5); Red Cell Distribution Width 13.6 % (9.3-17.3); White Blood Count 14.3 T/CUMM (4-12)
[2020-10-31 05:31] LABS: Platelet Count 131 T/CUMM (130-400)
[2020-10-31 05:52] LABS: Calcium 8.7 MG/DL (8.5-10.1); Osmolality,Calculated 302.7 MOS/KG (273-304); Potassium 4.8 MMOL/L (3.5-5.1)
[2020-10-31 06:10] VITALS: BP 112/44
[2020-10-31 06:23] LABS: Eosinophils 2 % (0-10); Hypochromasia 1+; Lymphocytes 10 % (20-55); Microcytosis 1+; Platelet Estimate Adequate; Segmented Neutrophils 77 % (50-85); Total Cells Counted 100
[2020-10-31] MEDS: CHOLECALCIFEROL 5,000 UNIT TABLET PO SCH (08:50)
[2020-10-31] MEDS: DOCUSATE SODIUM 100 MG/10 ML UDCUP PO SCH ×2 (08:50→20:23)
[2020-10-31] MEDS: FONDAPARINUX 2.5 MG/0.5 ML SYRINGE SUBCUT SCH (08:50)
[2020-10-31] MEDS: LORATADINE 10 MG TABLET PO SCH (08:50)
[2020-10-31] MEDS: ASCORBIC ACID 500 MG TABLET PO SCH (08:50)
[2020-10-31] MEDS: DEXAMETHASONE 4 MG/1 ML VIAL IV SCH (08:55)
[2020-10-31] MEDS: FAMOTIDINE 20 MG/2 ML VIAL IV SCH ×2 (08:55→20:23)
[2020-10-31] MEDS: BUDESONIDE/FORMOTEROL 160-4.5 INHALER 6 GM INH SCH ×2 (08:58→20:23)
[2020-10-31] MEDS: cefTRIAXone 1,000 MG in SYRINGE 1 EACH IV SCH (09:00)
[2020-10-31] MEDS ORDERED: NOREPINEPHRINE 4 MG/4 ML VIAL IV ONE (10:15)
[2020-10-31] MEDS: MIDAZOLAM 100 MG in SODIUM CHLORIDE 0.9% 80 ML IV PRN (11:42)
[2020-10-31] MEDS: POTASSIUM CHLORIDE 20 MEQ TABLET PO SCH (11:55)
[2020-11-01] MEDS: SODIUM CHLORIDE 0.45% 1,000 ML IV SCH ×2 (00:24→11:15)
[2020-11-01] MEDS: INSULIN LISPRO 100 UNIT/ML SUBCUT SCH ×3 (00:29→12:15)
[2020-11-01] MEDS: ALBUTEROL INHALER 18 GM INH SCH ×2 (00:30→06:07)
[2020-11-01 04:19] LABS: ABG Base Excess -1.6 MMOL/L (-2.5-2.5); ABG HCO3 23.1 MMOL/L (20-26); ABG PCO2 51.4 MM HG (35-48); ABG PH 7.304 (7.35-7.45); ABG TCO2 22.9 MMOL/L (23-27); Allen Test Positive; Pt O2 Delivery Device Ventilator
[2020-11-01 04:19] LABS: Basophils % 0.2 % (0.0-0.8); Eosinophils # 0.1 10*3/uL (0.0-0.87); Eosinophils % 0.7 % (0.00-10.9); Hematocrit 29.6 VOL% (35.7-47.0); Hemoglobin 9.4 GM/DL (12.0-16.0); Immature Granulocytes % 4.1 %; Immature Granulocytes Absolute 0.66 #; Lymphocytes # 0.7 10*3/uL (1.4-4.0); Lymphocytes % 4.3 % (21.3-54.2); Mean Corpuscular HGB Conc 31.8 GM/DL (32-36); Mean Corpuscular Volume 95.5 FL (87-102); Mean Platelet Volume 11.7 FL (9.6-12.0); Monocytes % 6.6 % (1.7-12.7); Neutrophils % 84.1 % (38.7-73.9); Platelet Count 133 T/CUMM (130-400); Red Cell Distribution Width 13.7 % (9.3-17.3); White Blood Count 16.2 T/CUMM (4-12)
[2020-11-01 04:44] LABS: Band Neutrophils 1 % (0-10); Eosinophils 1 % (0-10); Lymphocytes 8 % (20-55); Segmented Neutrophils 88 % (50-85); Total Cells Counted 100
[2020-11-01 04:45] LABS: Hypochromasia 1+; Microcytosis 1+; Platelet Estimate Adequate
[2020-11-01 04:46] LABS: Calcium 7.9 MG/DL (8.5-10.1); Osmolality,Calculated 302.1 MOS/KG (273-304); Potassium 4.8 MMOL/L (3.5-5.1)
[2020-11-01] MEDS: POTASSIUM CHLORIDE 20 MEQ TABLET PO SCH (08:31)
[2020-11-01] MEDS: FONDAPARINUX 2.5 MG/0.5 ML SYRINGE SUBCUT SCH (09:06)
[2020-11-01] MEDS: ASCORBIC ACID 500 MG TABLET PO SCH (09:09)
[2020-11-01] MEDS: DEXAMETHASONE 4 MG/1 ML VIAL IV SCH (09:09)
[2020-11-01] MEDS: CHOLECALCIFEROL 5,000 UNIT TABLET PO SCH (09:10)
[2020-11-01] MEDS: LORATADINE 10 MG TABLET PO SCH (09:10)
[2020-11-01] MEDS: FAMOTIDINE 20 MG/2 ML VIAL IV SCH (09:11)
[2020-11-01] MEDS: BUDESONIDE/FORMOTEROL 160-4.5 INHALER 6 GM INH SCH (09:15)
[2020-11-01] MEDS: DOCUSATE SODIUM 100 MG/10 ML UDCUP PO SCH (09:15)
[2020-11-01] MEDS: ROCURONIUM 500 MG in SODIUM CHLORIDE 0.9% 500 ML IV PRN (09:55)
[2020-11-01] MEDS: cefTRIAXone 1,000 MG in SYRINGE 1 EACH IV SCH (10:30)
[2020-11-01] MEDS: MIDAZOLAM 100 MG in SODIUM CHLORIDE 0.9% 80 ML IV PRN ×2 (11:11→23:26)
[2020-11-01] MEDS ORDERED: methylPREDNISolone SOD SUC 40 MG/1 ML VIAL IV SCH (12:00)
[2020-11-01] MEDS ORDERED: LORazepam 2 MG/1 ML VIAL IV PRN (17:43)
[2020-11-02] MEDS: MORPHINE 4 MG/1 ML VIAL IV PRN ×2 (03:23→03:42)
[2020-11-02] MEDS ORDERED: ZINC GLUCONATE 50 MG TABLET PO SCH (09:00)
== END 2020-11-02 03:48 | disposition expired | DRG 207 ==
LOC: N.ED 05:26 → SUATTDRO 08:36 → N.EDINP 08:36 → N.2E 10-20 10:39 → N.CC 10-23 08:53
PROVIDERS: ADMIT Family Medicine; ATTEND Family Medicine